=== PATIENT | female | born 1995 | race Two or more races ===

== ENCOUNTER 2024-11-28 14:50 | Outpatient (CLI) | payer OTHER | END 2024-11-28 14:52 | disposition home or self-care (01) | LOC: PRENATAL 14:50 | PROVIDERS: ATTEND Obstetrics & Gynecology Maternal & Fetal Medicine | DX: O36.80X0 Pregnancy with inconclusive fetal viability, not applicable or unspecified (principal); Z36.82 Encounter for antenatal screening for nuchal translucency; O99.340 Other mental disorders complicating pregnancy, unspecified trimester; Z36.0 Encounter for antenatal screening for chromosomal anomalies; Z14.8 Genetic carrier of other disease; Z3A.14 14 weeks gestation of pregnancy ==

== ENCOUNTER 2025-01-03 08:01 | Outpatient (CLI) | payer OTHER | END 2025-01-03 08:02 | disposition home or self-care (01) | LOC: PRENATAL 08:01 | PROVIDERS: ATTEND Obstetrics & Gynecology Maternal & Fetal Medicine | DX: O44.00 Complete placenta previa NOS or without hemorrhage, unspecified trimester (principal); O43.90 Unspecified placental disorder, unspecified trimester; Z3A.20 20 weeks gestation of pregnancy ==

== ENCOUNTER → 2025-03-07 07:40 | Outpatient (CLI) | payer OTHER | END | disposition home or self-care (01) | LOC: PRENATAL 07:40 | PROVIDERS: ATTEND Obstetrics & Gynecology Maternal & Fetal Medicine | DX: O26.849 Uterine size-date discrepancy, unspecified trimester (principal); O36.8199 Decreased fetal movements, unspecified trimester, other fetus; O43.90 Unspecified placental disorder, unspecified trimester; O24.419 Gestational diabetes mellitus in pregnancy, unspecified control; Z3A.29 29 weeks gestation of pregnancy ==

== ENCOUNTER 2025-04-24 07:14 | Outpatient (CLI) | payer OTHER | END 2025-04-24 07:15 | disposition home or self-care (01) | LOC: PRENATAL 07:14 | PROVIDERS: ATTEND Obstetrics & Gynecology Maternal & Fetal Medicine | DX: O26.849 Uterine size-date discrepancy, unspecified trimester (principal); O36.8130 Decreased fetal movements, third trimester, not applicable or unspecified; O43.90 Unspecified placental disorder, unspecified trimester; O24.419 Gestational diabetes mellitus in pregnancy, unspecified control; O36.60X0 Maternal care for excessive fetal growth, unspecified trimester, not applicable or unspecified; Z3A.36 36 weeks gestation of pregnancy ==

== ENCOUNTER 2025-05-20 05:10 | Inpatient (IN) | payer OTHER ==
[~2025-05-20] VITALS: Ht 157.5 cm; Wt 64.4 kg
[2025-05-20] MEDS ORDERED: RINGERS SOLUTION,LACTATED 1,000 ML IV SCH (05:15)
[2025-05-20 05:42] VITALS: BP 97/54
[2025-05-20] MEDS ORDERED: PRENATAL TABLE1 EAC1 PO (06:01)
[2025-05-20 07:13] LABS: BASO % 0.4 % (0.1-1.2); EOS # 0.03 (0.04-0.54); EOS % 0.4 % (0.7-7.0); LYMPH # 1.81 (1.18-3.74); LYMPH % 22.0 % (19.3-53.1); MEAN PLATELET VOLUME 11.40 fl (9.4-12.4); MONO # 0.69 (0.24-0.82); MONO % 8.4 % (4.7-12.5); NEUT # 5.56 (1.56-6.13); NEUT % 67.7 % (34.0-71.1); RED CELL DISTRIBUTION WIDTH 13.1 % (11.6-14.4)
[2025-05-20 07:15] LABS: URINE APPEARANCE Clear; URINE BILIRRUBIN Negative (NEGATIVE); URINE BLOOD Negative; URINE COLOR Yellow; URINE GLUCOSE Negative (NEGATIVE); URINE KETONE Negative (NEGATIVE); URINE LEUKOCYTE Trace; URINE NITRATE Negative; URINE PROTEIN Trace (NEGATIVE); URINE UROBILINOGEN 1.0 E.U./dl
[2025-05-20 07:19] LABS: URINE BACTERIA 5751.2 uL (0.0-1933); URINE CAST 0.14 uL (0.0-1.40); URINE EPITHELIAL CELLS 49.6 uL (0.0-38.8); URINE RBC 4.3 uL (0.0-20.8); URINE WBC 75.6 uL (0.0-23.2)
[2025-05-20 07:31] VITALS: BP 100/59
[2025-05-20 07:39] LABS: INR < 0.93
[2025-05-20 07:46] LABS: ALT/SGPT 62.0 U/L (12-78); AST/SGOT 24.0 U/L (15-37); BILIRUBIN TOTAL 0.28 mg/dL (0.3-1.2); BUN CREA RATIO 22.0 (7.0-25.0); CREATININE SERUM 0.64 mg/dL (0.55-1.02); GFR 108.96; GLOBULINA 3.3 G/DL (2.4-3.5); GLUCOSE FASTING 89.0 mg/dL (65-100); OSMOLALITY SERUM 279.0 MOSM/KG (275-295)
[2025-05-20] MEDS ORDERED: MISOPROSTOL 25 MCG/4 ML GEL.W.APPL VAG STA (08:18)
[2025-05-20] MEDS ORDERED: MISOPROSTOL 25 MCG/4 ML GEL.W.APPL ONE (08:20)
[2025-05-20 11:40] VITALS: BP 110/64
[2025-05-20 15:13] VITALS: BP 106/62
[2025-05-20] MEDS ORDERED: MORPHINE SULFATE 4 MG/ML CARTRIDGE IV ONE (16:30)
[2025-05-20 20:05] VITALS: BP 116/66
[2025-05-20] MEDS ORDERED: AMPICILLIN SODIUM 2,000 MG VIAL IV ONE (20:30)
[2025-05-20] MEDS ORDERED: AMPICILLIN SODIUM 1,000 MG VIAL IV SCH (21:00)
[2025-05-20 23:26] VITALS: BP 116/66
[2025-05-21] MEDS ORDERED: MORPHINE SULFATE 4 MG/ML CARTRIDGE IV ONE (00:45)
[2025-05-21] MEDS ORDERED: TERBUTALINE SULFATE 1 MG/ML AMPUL SUBCUTANEO ONE (05:15)
[2025-05-21 07:41] VITALS: BP 119/60
[2025-05-21] MEDS ORDERED: OXYTOCIN 10 UNITS/ML VIAL ONE (08:12)
[2025-05-21] MEDS ORDERED: ERYTHROMYCIN BASE OPHT 1GM EACH TUBE OP ONE (08:13)
[2025-05-21] MEDS ORDERED: CHLORHEXIDINE GLUCONATE 120 ML BOTTLE TOP ONE (08:13)
[2025-05-21] MEDS ORDERED: MORPHINE SULFATE 4 MG/ML CARTRIDGE IV PRN (10:00)
[2025-05-21] MEDS ORDERED: RINGERS SOLUTION,LACTATED 1,000 ML IV SCH (10:30)
[2025-05-21 12:46] VITALS: BP 108/60
[2025-05-21] MEDS ORDERED: SIMETHICONE 125 MG CAPSULE PO SCH (13:00)
[2025-05-21 14:38] LABS: BASO % 0.2 % (0.1-1.2); EOS # 0.00 (0.04-0.54); EOS % 0.0 % (0.7-7.0); LYMPH # 1.06 (1.18-3.74); LYMPH % 5.2 % (19.3-53.1); MEAN PLATELET VOLUME 11.10 fl (9.4-12.4); MONO # 1.47 (0.24-0.82); MONO % 7.3 % (4.7-12.5); NEUT # 17.35 (1.56-6.13); NEUT % 85.8 % (34.0-71.1); RED CELL DISTRIBUTION WIDTH 13.2 % (11.6-14.4)
[2025-05-21 15:42] VITALS: BP 99/61
[2025-05-21] MEDS ORDERED: DOCUSATE SODIUM 100MG CAP PO SCH (17:00)
[2025-05-21 20:00] VITALS: BP 116/71
[2025-05-22] VITALS: BP 99/56
[2025-05-22 08:00] VITALS: BP 105/70
[2025-05-22 16:00] VITALS: BP 102/65
[2025-05-23 00:48] VITALS: BP 95/64
[2025-05-23 08:59] VITALS: BP 119/79
[2025-05-23 18:51] VITALS: BP 103/67
[2025-05-24 00:56] VITALS: BP 113/77
[2025-05-24 08:00] VITALS: BP 105/72
== END 2025-05-24 14:10 | disposition home or self-care (01) | DRG 788 ==
LOC: LDR 05:10 → O/R 05:10 → OB/GYN 05:10 → O/R 05-21 09:04 → OB/GYN 05-21 11:45
PROVIDERS: ADMIT Obstetrics & Gynecology; ATTEND Obstetrics & Gynecology
PROC: 3E0P7VZ Introduction of Hormone into Female Reproductive, Via Natural or Artificial Opening (ICD-10-PCS; 2025-05-20)
PROC: 4A1HXCZ Monitoring of Products of Conception, Cardiac Rate, External Approach (ICD-10-PCS; 2025-05-20)
PROC: 3E033VJ Introduction of Other Hormone into Peripheral Vein, Percutaneous Approach (ICD-10-PCS; 2025-05-21)
PROC: 10D00Z1 Extraction of Products of Conception, Low, Open Approach (ICD-10-PCS; principal; 2025-05-21 16:00)
DX: O24.420 Gestational diabetes mellitus in childbirth, diet controlled (principal); Z3A.39 39 weeks gestation of pregnancy; Z37.0 Single live birth

== ENCOUNTER 2025-07-04 15:31 | Emergency (ER) | payer OTHER ==
[~2025-07-04] VITALS: Ht 162.6 cm; Wt 56.7 kg
[~2025-07-04 15:31] MED LIST: PRENATAL TABLE1 EAC1 PO
[2025-07-04 17:00] LABS: BASO % 0.7 % (0.1-1.2); EOS # 0.29 (0.04-0.54); EOS % 3.9 % (0.7-7.0); LYMPH # 1.53 (1.18-3.74); LYMPH % 20.3 % (19.3-53.1); MEAN PLATELET VOLUME 10.40 fl (9.4-12.4); MONO # 0.53 (0.24-0.82); MONO % 7.0 % (4.7-12.5); NEUT # 5.08 (1.56-6.13); NEUT % 67.6 % (34.0-71.1); RED CELL DISTRIBUTION WIDTH 13.0 % (11.6-14.4)
[2025-07-04 17:41] LABS: INR 1.04
[2025-07-04 17:42] LABS: URINE APPEARANCE Clear; URINE BILIRRUBIN Negative (NEGATIVE); URINE BLOOD Negative; URINE COLOR Yellow; URINE GLUCOSE Negative (NEGATIVE); URINE KETONE Negative (NEGATIVE); URINE LEUKOCYTE Negative; URINE NITRATE Negative; URINE PROTEIN Negative (NEGATIVE); URINE UROBILINOGEN 1.0 E.U./dl
[2025-07-04 17:46] LABS: URINE BACTERIA 33.5 uL (0.0-1933); URINE EPITHELIAL CELLS 6.6 uL (0.0-38.8); URINE RBC 9.3 uL (0.0-20.8); URINE WBC 4.3 uL (0.0-23.2)
[2025-07-04 17:57] LABS: COVID-19 AG NEGATIVE (NEGATIVE)
[2025-07-04 18:02] LABS: ALT/SGPT 34.0 U/L (12-78); AST/SGOT 15.0 U/L (15-37); BILIRUBIN TOTAL 0.42 mg/dL (0.3-1.2); BUN CREA RATIO 31.0 (7.0-25.0); CREATININE SERUM 0.61 mg/dL (0.55-1.02); GFR 115.16; GLOBULINA 3.2 G/DL (2.4-3.5); GLUCOSE FASTING 91.0 mg/dL (65-100); OSMOLALITY SERUM 287.0 MOSM/KG (275-295)
[2025-07-04 18:08] LABS: URINE CAST 0.00 uL (0.0-1.40)
== END 2025-07-04 18:43 | disposition home or self-care (01) ==
LOC: ER 15:32
DX: O75.4 Other complications of obstetric surgery and procedures (principal); Z20.822 Contact with and (suspected) exposure to COVID-19